=== PATIENT | female | born 1960 | race Caucasian/White ===

== ENCOUNTER 2021-02-11 18:39 | Inpatient (IN) | payer MEDICARE, SELFPAY ==
[2021-02-11 19:01] VITALS: BP 156/100; PULSE 89; RESP 18; TEMP 36.9; O2SAT 96
--- NOTE | 2021-02-11 19:10 | ECG_ITS ---
Test Reason : GENERAL MEDICAL Blood Pressure : / mmHG Vent. Rate : 099 BPM Atrial Rate : 099 BPM P-R Int : 134 ms QRS Dur : 072 ms QT Int : 336 ms P-R-T Axes : 034 003 027 degrees QTc Int : 431 ms Normal sinus rhythm Possible Left atrial enlargement Borderline ECG No previous ECGs available Referred By: Generic ED Physician Electronically Signed By:AREN BEARDEN
[2021-02-11 19:36] LABS: MANUAL DIFF FLAG NO
[2021-02-11 19:38] LABS: Basophils Percent Auto 0.3 % (0-2); Eosinophils Absolute Auto 0.1 X10*3/uL (0.0-0.4); Hematocrit 43.7 % (37-47); Hemoglobin 14.8 g/dl (12.0-16.0); Imm Gran Abs Auto 0.02 X10*3/uL (0.00-0.03); Imm Gran Pct Auto 0.3 % (0.0-0.4); Lymphocytes Absolute Auto 2.1 X10*3/uL (1.2-4.9); Lymphocytes Percent Auto 32.4 % (20-40); Mean Corpuscular HGB Conc 33.9 g/dl (31.0-35.0); Mean Corpuscular Hemoglobin 33.9 pg (27.0-33.0); Mean Corpuscular Volume 100.2 fL (80-98); Mean Platelet Volume 10.3 fL (9.4-12.3); Monocytes Absolute Auto 0.4 X10*3/uL (0.1-1.2); Monocytes Percent Auto 6.6 % (2-11); Neutrophils Absolute Auto 3.7 X10*3/uL (2.0-8.3); Neutrophils Percent Auto 58.4 % (45-73); Platelet Count 261 X10*3/uL (160-400); Red Blood Count 4.36 X10*6/uL (4.20-5.50); Red Cell Distribution Width 12.5 % (11.0-16.0); White Blood Count 6.4 X10*3/uL (4.8-10.8)
[2021-02-11 20:07] LABS: Alanine Aminotransferase 15 U/L (0-31); Albumin Level 4.3 g/dL (3.5-5.0); Alkaline Phosphatase 66 U/L (39-117); Anion Gap 15 (12-20); Aspartate Amino Transferase 22 U/L (5-31); Bilirubin Total 0.2 mg/dL (0.0-1.0); Blood Urea Nitrogen 10 mg/dL (9-16); Calcium 9.5 mg/dL (8.4-10.2); Carbon Dioxide 26 mmol/L (22-29); Chloride 106 mmol/L (96-108); Creatinine Clr Calc Pharmacy 71.6; Estimated Glomerular Filt Rate > 60; Glucose Random 86 mg/dL (60-115); Potassium 4.8 mmol/L (3.3-5.1); Sodium 142 mmol/L (135-145); Total Protein 7.1 g/dL (6.5-8.0)
[2021-02-11 20:14] LABS: Amphetamine Screen Urine Not Detected (Not Detect); Barbiturates, Urine Not Detected (Not Detect); Benzodiazepines Screen Urine Not Detected (Not Detect); Cannabinoid Screen Urine Not Detected (Not Detect); Cocaine Screen Urine POSITIVE (Not Detect); Fentanyl, urine Not Detected (Not Detect); Opiate Screen Urine Not Detected (Not Detect); Phencyclidine Screen Urine Not Detected (Not Detect)
--- NOTE | 2021-02-11 21:16 | ECG_ITS ---
Test Reason : SI Blood Pressure : / mmHG Vent. Rate : 064 BPM Atrial Rate : 064 BPM P-R Int : 136 ms QRS Dur : 076 ms QT Int : 404 ms P-R-T Axes : 027 -01 023 degrees QTc Int : 416 ms Normal sinus rhythm Possible Left atrial enlargement T wave abnormality, consider anterior ischemia Abnormal ECG When compared with ECG of 11-FEB-2021 19:19, Vent. rate has decreased BY 35 BPM T wave inversion now evident in Anterior leads Referred By: Karolina Malhotra Electronically Signed By:AREN BEARDEN
--- NOTE | 2021-02-11 21:29 | PHA.MEDREC ---
Pharmacy Consult ? Medication Reconciliation Pharmacy has completed the medication reconciliation.
[2021-02-11 21:34] VITALS: BP 152/99; PULSE 74; RESP 16; O2SAT 96
[2021-02-11 21:41] LABS: Acetaminophen LAB < 1 mcg/mL (<30); Lipase 20 U/L (8-78); Magnesium 1.9 mg/dL (1.6-2.6)
[2021-02-11] MEDS: Famotidine/PF 20 MG/2 ML VIAL IVPUSH (21:48)
[2021-02-11] MEDS: Magnesium Hydrox/Alum Hydrox 30 ML ORAL.SUSP PO (21:48)
[2021-02-11 21:50] LABS: Ethanol 58 mg/dL
[2021-02-11 22:19] LABS: COVID-19 Test Negative (Negative); IDNOW Serial# 9DD0AD1C
[2021-02-11 22:24] LABS: Troponin-I High Sensitivity < 3.5 ng/L (<3.5-17.0)
--- NOTE | 2021-02-11 22:24 | ED.PSYCH ---
HPI - Psych General Chief Complaint: Psychiatric Symptoms <MAILE Jean Last Filed: 02/12/21 00:30> Stated Complaint: si, drug abuse <MAILE Jean Last Filed: 02/12/21 00:30> Time Seen by Provider: 02/11/21 21:01 <MAILE Jean Last Filed: 02/12/21 00:30> Source: patient <MAILE Jean Last Filed: 02/12/21 00:30> Mode of arrival: ambulatory <MAILE Jean Last Filed: 02/12/21 00:30> History of Present Illness HPI Narrative: 60-year-old female with a past medical history of bipolar, depression, ETOH abuse, substance abuse, presenting to the ED complaining of suicidal ideations x a long time with suicide attempt today. Reports drinking pint of alcohol, using crack cocaine, taking a couple prescribed craving medications, today. Also reports taking about 4 unknown sleeping pills a few days ago in suicide attempt. Denies other illicit drugs. Reports medication noncompliance. Reports CP/SOB and nausea/diarrhea Denies vomiting, fever, chills, cough <MAILE Jean Last Filed: 02/12/21 00:30> Related Data Home Medications: Home Medications Medication Instructions Recorded Confirmed No Known Home Meds 02/11/21 02/11/21 <MAILE Jean Last Filed: 02/12/21 00:30> Allergies/Adverse Reactions: Allergies Allergy/AdvReac Type Severity Reaction Status Date / Time No Known Allergies Allergy Verified 02/11/21 19:01 <MAILE Jean Last Filed: 02/12/21 00:30> Review of Systems Review of Systems: Constitutional: No Fever, No Chills, No Fatigue, No Malaise ENT/Mouth: No Ear Pain, No sore throat Eyes: No Eye Pain, No Swelling, No Redness Cardiovascular: + Chest Pain, + SOB, No Palpitations Respiratory: No Cough, No Dyspnea Gastrointestinal: + Nausea, No Vomiting, + Diarrhea, No Constipation Genitourinary: No Dysuria, No Urinary Frequency Musculoskeletal: No joint pain Skin: No Skin Lesions, No rash Neuro: No Weakness, No Headache Psych: No Anxiety/Panic, + Depression, +SI, No HI, + Social Issues <MAILE Jean - Last Filed: 02/12/21 00:30> Yes all other systems are reviewed and are negative <MAILE Jean - Last Filed: 02/12/21 00:30> [facility] Past Medical History Attestation statement: The following information was validated with the patient. <MAILE Jean - Last Filed: 02/12/21 00:30> Medical History: Medical History (Updated 02/12/21 @ 00:30 by MAILE Jean) Bipolar 1 disorder Depression ETOH abuse Substance abuse <MAILE Jean - Last Filed: 02/12/21 00:30> Social History Social History: Social History Advance Directives: No Guardian: No <MAILE Jean - Last Filed: 02/12/21 00:30> Physical Exam Vital Signs: Vital Signs: Last Vital Signs Temp 97.7 F 02/12/21 06:49 Pulse 70 02/12/21 06:49 Resp 02/12/21 06:49 BP 147/93 H 02/12/21 06:49 Pulse Ox 98 02/12/21 06:49 Body Mass Index 20.0 <MAILE Jean - Last Filed: 02/12/21 00:30> Vital Signs: Last Vital Signs Temp 97.7 F 02/12/21 06:49 Pulse 70 02/12/21 06:49 Resp 18 02/12/21 06:49 BP 147/93 H 02/12/21 06:49 Pulse Ox 98 02/12/21 06:49 Body Mass Index 20.0 <MAILE Fields - Last Filed: 02/12/21 01:26> Vital Signs: Last Vital Signs Temp 97.7 F 02/12/21 06:49 Pulse 70 02/12/21 06:49 Resp 02/12/21 06:49 BP 147/93 H 02/12/21 06:49 Pulse Ox 98 02/12/21 06:49 Body Mass Index 20.0 <MAILE Chávez - Last Filed: 02/12/21 08:27> Const: General: cooperative, no acute distress, well developed, alert and awake <MAILE Jean - Last Filed: 02/12/21 00:30> Limitations: no limitations <Karolina Malhotra [facility] Last Filed: 02/12/21 00:30> HENMT: Head: Yes normal to inspection <Karolina Malhotra [facility] Last Filed: 02/12/21 00:30> Ears: hearing grossly normal bilaterally <Karolina Malhotra [place] - Last Filed: 02/12/21 00:30> General nose exam: Normal external nose present <Karolina Malhotra [facility] Last Filed: 02/12/21 00:30> Face and sinus: Yes normal facial exam <Karolina Malhotra [place] - Last Filed: 02/12/21 00:30> Eyes: General: appearance normal, both eyes and all related structures <Karolina Malhotra [place] - Last Filed: 02/12/21 00:30> Pupils: Equal, round and reactive pupils present <Karolina Malhotra [facility] Last Filed: 02/12/21 00:30> EOM: EOMs intact bilaterally <Karolina Malhotra [facility] Last Filed: 02/12/21 00:30> Neck: Neck: Yes normal visual inspection <Karolina Malhotra [facility] Last Filed: 02/12/21 00:30> Resp: Effort & Inspection: normal respiratory effort <Karolina Malhotra [facility] Last Filed: 02/12/21 00:30> Auscultation: clear to auscultation bilaterally, no rales, no rhonchi and no wheezes <Karolina Malhotra [facility] Last Filed: 02/12/21 00:30> Cardio: Rate: regular rate <Karolina Malhotra [facility] Last Filed: 02/12/21 00:30> Heart sounds: S1 normal heart sound present and S2 normal heart sound present <Karolina Malhotra [facility] Last Filed: 02/12/21 00:30> GI: Inspection: Yes normal to inspection <Karolina Malhotra [facility] Last Filed: 02/12/21 00:30> Palpation (GI): Soft to palpation, nontender, no guarding and not rigid <Karolina Malhotra [facility] Last Filed: 02/12/21 00:30> Skin: Rashes: no rashes <Karolina Malhotra [place] - Last Filed: 02/12/21 00:30> Wounds: no wounds <MAILE Jean Last Filed: 02/12/21 00:30> Neuro: Cranial nerves: Yes Equal, round and reactive pupils present <MAILE Jean Last Filed: 02/12/21 00:30> Gait exam (Neuro): Normal gait present <MAILE Jean Last Filed: 02/12/21 00:30> Extrem: General: Yes normal to inspection <MAILE Jean Last Filed: 02/12/21 00:30> Psych: Affect: Sad affect present and Blunted affect present <MAILE Jean Last Filed: 02/12/21 00:30> Thought content: Suicidality present, Depressive thoughts present and Depersonalization present <AMILE Jean Last Filed: 02/12/21 00:30> Insight: Fair insight present (Psych) <MAILE Jean Last Filed: 02/12/21 00:30> Judgement: Poor judgement present (Psych) <MAILE Jean Last Filed: 02/12/21 00:30> Course Course Course Narrative: Section 12 signed and in patient's chart -labs unremarkable, including troponin -tox screen positive for cocaine, ethanol 58 -0020--patient was evaluated by care team and is now an inpatient bed search -0100--ED care transferred to Dr. Alberts pending bed search. Patient placed in Physician observation <MAILE Jean Last Filed: 02/12/21 00:30> MDM - Psych MDM Narrative Medical decision making narrative: 60-year-old female with a PMHx of bipolar, depression, ETOH abuse, substance abuse, presenting to the ED complaining of suicidal ideations x a long time with suicide attempt today. Reports drinking pint of alcohol, using crack cocaine, taking a couple prescribed craving medications, today. Also reports taking about 4 unknown sleeping pills a few days ago in suicide attempt. On exam initially hypertensive, NAD, physical exam as above. Concern for intentional OD vs substance abuse vs anxiety. Rule out ACS. Low concern for acute OD on sleeping pills as patient denies taking any sleeping medication today & reports taking a few days ago Plan: EKG, labs, BUCK/tox screen, Section 12, Crisis consult <MAILE Jean - Last Filed: 02/12/21 00:30> Medical Records Attestation: I reviewed the patient's medical records. <MAILE Jean - Last Filed: 02/12/21 00:30> Lab Data Attestation: I reviewed the patient's lab results. <MAILE Jean - Last Filed: 02/12/21 00:30> Result diagrams: : 02/11/21 19:31 02/11/21 19:31 <MAILE Jean - Last Filed: 02/12/21 00:30> Labs: Lab Results 02/11/21 02/11/21 02/11/21 Range/Units 19:31 19:31 19:31 WBC 6.4 (4.8-10.8) X10*3/uL RBC 4.36 (4.20-5.50) X10*6/uL Hgb 14.8 (12.0-16.0) g/dl Hct 43.7 (37-47) % MCV 100.2 H (80-98) fL MCH 33.9 H (27.0-33.0) pg MCHC 33.9 (31.0-35.0) g/dl RDW 12.5 (11.0-16.0) % Plt Count 261 (160-400) X10*3/uL MPV 10.3 (9.4-12.3) fL Immature Gran % (Auto) 0.3 (0.0-0.4) % Neut % (Auto) 58.4 (45-73) % Lymph % (Auto) 32.4 (20-40) % Person % (Auto) 6.6 (2-11) % Eos % (Auto) 2.0 (0-4) % Baso % (Auto) 0.3 (0-2) % Lymph # (Auto) 2.1 (1.2-4.9) X10*3/uL Person # (Auto) 0.4 (0.1-1.2) X10*3/uL Eos # (Auto) 0.1 (0.0-0.4) X10*3/uL Baso # (Auto) 0.0 (0.0-0.2) X10*3/uL Abs Immat Gran (auto) 0.02 (0.00-0.03) X10*3/uL Absolute Neuts (auto) 3.7 (2.0-8.3) X10*3/uL Absolute Nucleated RBC 0.000 (0.0-0.012) X10*3/uL Nucleated RBC % (auto) 0.0 (0.0-0.2) /100WBC Sodium 142 (135-145) mmol/L Potassium 4.8 (3.3-5.1) mmol/L Chloride 106 (96-108) mmol/L Carbon Dioxide 26 (22-29) mmol/L Anion Gap 15 (12-20) BUN 10 (9-16) mg/dL Creatinine 0.70 (0.5-1.4) mg/dL Estim Creat Clear Calc 71.6 Estimated GFR > 60 Random Glucose 86 (60-115) mg/dL Calcium 9.5 (8.4-10.2) mg/dL Magnesium 1.9 (1.6-2.6) mg/dL Total Bilirubin 0.2 (0.0-1.0) mg/dL AST 22 (5-31) U/L ALT 15 (0-31) U/L Alkaline Phosphatase 66 (39-117) U/L Troponin I High Sens (<3.5-17.0) ng/L Total Protein 7.1 (6.5-8.0) g/dL Albumin 4.3 (3.5-5.0) g/dL Lipase 20 (8-78) U/L Urine Color Urine Appearance Urine pH (5.0-8.0) Ur Specific [place] (1.005-1.025) Urine Protein (NEG-TRACE) MG/DL Urine Glucose (UA) (NEG) MG/DL Urine Ketones (NEG) MG/DL Urine Blood (NEG) Urine Nitrite (NEG) Ur Leukocyte Esterase (NEG) Urine RBC (0) /HPF Urine WBC (0-4) /HPF Ur Squamous Epith Cells /LPF Urine Bacteria /LPF Urine Mucus /LPF Salicylates < 5.0 L (15-30) mg/dL Urine Opiates Screen Not Detected (Not Detect) Urine Fentanyl Screen Not Detected (Not Detect) Acetaminophen < 1 (<30) mcg/mL Ur Barbiturates Screen Not Detected (Not Detect) Ur Phencyclidine Scrn Not Detected (Not Detect) Ur Amphetamines Screen Not Detected (Not Detect) U Benzodiazepines Scrn Not Detected (Not Detect) Urine Cocaine Screen POSITIVE H (Not Detect) U Marijuana (THC) Screen Not Detected (Not Detect) Ethyl Alcohol mg/dL COVID-19 (JACKIE) (Negative) COVID-19 Clin Com 02/11/21 02/11/21 02/11/21 Range/Units 19:31 19:31 21:43 WBC (4.8-10.8) X10*3/uL RBC (4.20-5.50) X10*6/uL Hgb (12.0-16.0) g/dl Hct (37-47) % MCV (80-98) fL MCH (27.0-33.0) pg MCHC (31.0-35.0) g/dl RDW (11.0-16.0) % Plt Count (160-400) X10*3/uL MPV (9.4-12.3) fL Immature Gran % (Auto) (0.0-0.4) % Neut % (Auto) (45-73) % Lymph % (Auto) (20-40) % Person % (Auto) (2-11) % Eos % (Auto) (0-4) % Baso % (Auto) (0-2) % Lymph # (Auto) (1.2-4.9) X10*3/uL Person # (Auto) (0.1-1.2) X10*3/uL Eos # (Auto) (0.0-0.4) X10*3/uL Baso # (Auto) (0.0-0.2) X10*3/uL Abs Immat Gran (auto) (0.00-0.03) X10*3/uL Absolute Neuts (auto) (2.0-8.3) X10*3/uL Absolute Nucleated RBC (0.0-0.012) X10*3/uL Nucleated RBC % (auto) (0.0-0.2) /100WBC Sodium (135-145) mmol/L Potassium (3.3-5.1) mmol/L Chloride (96-108) mmol/L Carbon Dioxide (22-29) mmol/L Anion Gap (12-20) BUN (9-16) mg/dL Creatinine (0.5-1.4) mg/dL Estim Creat Clear Calc Estimated GFR Random Glucose (60-115) mg/dL Calcium (8.4-10.2) mg/dL Magnesium (1.6-2.6) mg/dL Total Bilirubin (0.0-1.0) mg/dL AST (5-31) U/L ALT (0-31) U/L Alkaline Phosphatase (39-117) U/L Troponin I High Sens < 3.5 (<3.5-17.0) ng/L Total Protein (6.5-8.0) g/dL Albumin (3.5-5.0) g/dL Lipase (8-78) U/L Urine Color YELLOW Urine Appearance CLEAR Urine pH 6.0 (5.0-8.0) Ur Specific [place] 1.025 (1.005-1.025) Urine Protein NEG (NEG-TRACE) MG/DL Urine Glucose (UA) NEG (NEG) MG/DL Urine Ketones NEG (NEG) MG/DL Urine Blood TRACE (NEG) Urine Nitrite NEG (NEG) Ur Leukocyte Esterase NEG (NEG) Urine RBC 1-4 (0) /HPF Urine WBC 1-4 (0-4) /HPF Ur Squamous Epith Cells 1+ /LPF Urine Bacteria 1+ /LPF Urine Mucus 1+ /LPF Salicylates (15-30) mg/dL Urine Opiates Screen (Not Detect) Urine Fentanyl Screen (Not Detect) Acetaminophen (<30) mcg/mL Ur Barbiturates Screen (Not Detect) Ur Phencyclidine Scrn (Not Detect) Ur Amphetamines Screen (Not Detect) U Benzodiazepines Scrn (Not Detect) Urine Cocaine Screen (Not Detect) U Marijuana (THC) Screen (Not Detect) Ethyl Alcohol 58 mg/dL COVID-19 (JACKIE) (Negative) COVID-19 Clin Com 02/11/21 Range/Units 21:43 WBC (4.8-10.8) X10*3/uL RBC (4.20-5.50) X10*6/uL Hgb (12.0-16.0) g/dl Hct (37-47) % MCV (80-98) fL MCH (27.0-33.0) pg MCHC (31.0-35.0) g/dl RDW (11.0-16.0) % Plt Count (160-400) X10*3/uL MPV (9.4-12.3) fL Immature Gran % (Auto) (0.0-0.4) % Neut % (Auto) (45-73) % Lymph % (Auto) (20-40) % Person % (Auto) (2-11) % Eos % (Auto) (0-4) % Baso % (Auto) (0-2) % Lymph # (Auto) (1.2-4.9) X10*3/uL Person # (Auto) (0.1-1.2) X10*3/uL Eos # (Auto) (0.0-0.4) X10*3/uL Baso # (Auto) (0.0-0.2) X10*3/uL Abs Immat Gran (auto) (0.00-0.03) X10*3/uL Absolute Neuts (auto) (2.0-8.3) X10*3/uL Absolute Nucleated RBC (0.0-0.012) X10*3/uL Nucleated RBC % (auto) (0.0-0.2) /100WBC Sodium (135-145) mmol/L Potassium (3.3-5.1) mmol/L Chloride (96-108) mmol/L Carbon Dioxide (22-29) mmol/L Anion Gap (12-20) BUN (9-16) mg/dL Creatinine (0.5-1.4) mg/dL Estim Creat Clear Calc Estimated GFR Random Glucose (60-115) mg/dL Calcium (8.4-10.2) mg/dL Magnesium (1.6-2.6) mg/dL Total Bilirubin (0.0-1.0) mg/dL AST (5-31) U/L ALT (0-31) U/L Alkaline Phosphatase (39-117) U/L Troponin I High Sens (<3.5-17.0) ng/L Total Protein (6.5-8.0) g/dL Albumin (3.5-5.0) g/dL Lipase (8-78) U/L Urine Color Urine Appearance Urine pH (5.0-8.0) Ur Specific [place] (1.005-1.025) Urine Protein (NEG-TRACE) MG/DL Urine Glucose (UA) (NEG) MG/DL Urine Ketones (NEG) MG/DL Urine Blood (NEG) Urine Nitrite (NEG) Ur Leukocyte Esterase (NEG) Urine RBC (0) /HPF Urine WBC (0-4) /HPF Ur Squamous Epith Cells /LPF Urine Bacteria /LPF Urine Mucus /LPF Salicylates (15-30) mg/dL Urine Opiates Screen (Not Detect) Urine Fentanyl Screen (Not Detect) Acetaminophen (<30) mcg/mL Ur Barbiturates Screen (Not Detect) Ur Phencyclidine Scrn (Not Detect) Ur Amphetamines Screen (Not Detect) U Benzodiazepines Scrn (Not Detect) Urine Cocaine Screen (Not Detect) U Marijuana (THC) Screen (Not Detect) Ethyl Alcohol mg/dL COVID-19 (JACKIE) Negative (Negative) COVID-19 Clin Com See Note <MAILE Jaen - Last Filed: 02/12/21 00:30> Lab Results 02/11/21 02/11/21 02/11/21 Range/Units 19:31 19:31 19:31 WBC 6.4 (4.8-10.8) X10*3/uL RBC 4.36 (4.20-5.50) X10*6/uL Hgb 14.8 (12.0-16.0) g/dl Hct 43.7 (37-47) % MCV 100.2 H (80-98) fL MCH 33.9 H (27.0-33.0) pg MCHC 33.9 (31.0-35.0) g/dl RDW 12.5 (11.0-16.0) % Plt Count 261 (160-400) X10*3/uL MPV 10.3 (9.4-12.3) fL Immature Gran % (Auto) 0.3 (0.0-0.4) % Neut % (Auto) 58.4 (45-73) % Lymph % (Auto) 32.4 (20-40) % Person % (Auto) 6.6 (2-11) % Eos % (Auto) 2.0 (0-4) % Baso % (Auto) 0.3 (0-2) % Lymph # (Auto) 2.1 (1.2-4.9) X10*3/uL Person # (Auto) 0.4 (0.1-1.2) X10*3/uL Eos # (Auto) 0.1 (0.0-0.4) X10*3/uL Baso # (Auto) 0.0 (0.0-0.2) X10*3/uL Abs Immat Gran (auto) 0.02 (0.00-0.03) X10*3/uL Absolute Neuts (auto) 3.7 (2.0-8.3) X10*3/uL Absolute Nucleated RBC 0.000 (0.0-0.012) X10*3/uL Nucleated RBC % (auto) 0.0 (0.0-0.2) /100WBC Sodium 142 (135-145) mmol/L Potassium 4.8 (3.3-5.1) mmol/L Chloride 106 (96-108) mmol/L Carbon Dioxide 26 (22-29) mmol/L Anion Gap 15 (12-20) BUN 10 (9-16) mg/dL Creatinine 0.70 (0.5-1.4) mg/dL Estim Creat Clear Calc 71.6 Estimated GFR > 60 Random Glucose 86 (60-115) mg/dL Calcium 9.5 (8.4-10.2) mg/dL Magnesium 1.9 (1.6-2.6) mg/dL Total Bilirubin 0.2 (0.0-1.0) mg/dL AST 22 (5-31) U/L ALT 15 (0-31) U/L Alkaline Phosphatase 66 (39-117) U/L Troponin I High Sens (<3.5-17.0) ng/L Total Protein 7.1 (6.5-8.0) g/dL Albumin 4.3 (3.5-5.0) g/dL Lipase 20 (8-78) U/L Urine Color Urine Appearance Urine pH (5.0-8.0) Ur Specific [place] (1.005-1.025) Urine Protein (NEG-TRACE) MG/DL Urine Glucose (UA) (NEG) MG/DL Urine Ketones (NEG) MG/DL Urine Blood (NEG) Urine Nitrite (NEG) Ur Leukocyte Esterase (NEG) Urine RBC (0) /HPF Urine WBC (0-4) /HPF Ur Squamous Epith Cells /LPF Urine Bacteria /LPF Urine Mucus /LPF Salicylates < 5.0 L (15-30) mg/dL Urine Opiates Screen Not Detected (Not Detect) Urine Fentanyl Screen Not Detected (Not Detect) Acetaminophen < 1 (<30) mcg/mL Ur Barbiturates Screen Not Detected (Not Detect) Ur Phencyclidine Scrn Not Detected (Not Detect) Ur Amphetamines Screen Not Detected (Not Detect) U Benzodiazepines Scrn Not Detected (Not Detect) Urine Cocaine Screen POSITIVE H (Not Detect) U Marijuana (THC) Screen Not Detected (Not Detect) Ethyl Alcohol mg/dL COVID-19 (JACKIE) (Negative) COVID-19 Clin Com 02/11/21 02/11/21 02/11/21 Range/Units 19:31 19:31 21:43 WBC (4.8-10.8) X10*3/uL RBC (4.20-5.50) X10*6/uL Hgb (12.0-16.0) g/dl Hct (37-47) % MCV (80-98) fL MCH (27.0-33.0) pg MCHC (31.0-35.0) g/dl RDW (11.0-16.0) % Plt Count (160-400) X10*3/uL MPV (9.4-12.3) fL Immature Gran % (Auto) (0.0-0.4) % Neut % (Auto) (45-73) % Lymph % (Auto) (20-40) % Person % (Auto) (2-11) % Eos % (Auto) (0-4) % Baso % (Auto) (0-2) % Lymph # (Auto) (1.2-4.9) X10*3/uL Person # (Auto) (0.1-1.2) X10*3/uL Eos # (Auto) (0.0-0.4) X10*3/uL Baso # (Auto) (0.0-0.2) X10*3/uL Abs Immat Gran (auto) (0.00-0.03) X10*3/uL Absolute Neuts (auto) (2.0-8.3) X10*3/uL Absolute Nucleated RBC (0.0-0.012) X10*3/uL Nucleated RBC % (auto) (0.0-0.2) /100WBC Sodium (135-145) mmol/L Potassium (3.3-5.1) mmol/L Chloride (96-108) mmol/L Carbon Dioxide (22-29) mmol/L Anion Gap (12-20) BUN (9-16) mg/dL Creatinine (0.5-1.4) mg/dL Estim Creat Clear Calc Estimated GFR Random Glucose (60-115) mg/dL Calcium (8.4-10.2) mg/dL Magnesium (1.6-2.6) mg/dL Total Bilirubin (0.0-1.0) mg/dL AST (5-31) U/L ALT (0-31) U/L Alkaline Phosphatase (39-117) U/L Troponin I High Sens < 3.5 (<3.5-17.0) ng/L Total Protein (6.5-8.0) g/dL Albumin (3.5-5.0) g/dL Lipase (8-78) U/L Urine Color YELLOW Urine Appearance CLEAR Urine pH 6.0 (5.0-8.0) Ur Specific [place] 1.025 (1.005-1.025) Urine Protein NEG (NEG-TRACE) MG/DL Urine Glucose (UA) NEG (NEG) MG/DL Urine Ketones NEG (NEG) MG/DL Urine Blood TRACE (NEG) Urine Nitrite NEG (NEG) Ur Leukocyte Esterase NEG (NEG) Urine RBC 1-4 (0) /HPF Urine WBC 1-4 (0-4) /HPF Ur Squamous Epith Cells 1+ /LPF Urine Bacteria 1+ /LPF Urine Mucus 1+ /LPF Salicylates (15-30) mg/dL Urine Opiates Screen (Not Detect) Urine Fentanyl Screen (Not Detect) Acetaminophen (<30) mcg/mL Ur Barbiturates Screen (Not Detect) Ur Phencyclidine Scrn (Not Detect) Ur Amphetamines Screen (Not Detect) U Benzodiazepines Scrn (Not Detect) Urine Cocaine Screen (Not Detect) U Marijuana (THC) Screen (Not Detect) Ethyl Alcohol 58 mg/dL COVID-19 (JACKIE) (Negative) COVID-19 Clin Com 02/11/21 Range/Units 21:43 WBC (4.8-10.8) X10*3/uL RBC (4.20-5.50) X10*6/uL Hgb (12.0-16.0) g/dl Hct (37-47) % MCV (80-98) fL MCH (27.0-33.0) pg MCHC (31.0-35.0) g/dl RDW (11.0-16.0) % Plt Count (160-400) X10*3/uL MPV (9.4-12.3) fL Immature Gran % (Auto) (0.0-0.4) % Neut % (Auto) (45-73) % Lymph % (Auto) (20-40) % Person % (Auto) (2-11) % Eos % (Auto) (0-4) % Baso % (Auto) (0-2) % Lymph # (Auto) (1.2-4.9) X10*3/uL Person # (Auto) (0.1-1.2) X10*3/uL Eos # (Auto) (0.0-0.4) X10*3/uL Baso # (Auto) (0.0-0.2) X10*3/uL Abs Immat Gran (auto) (0.00-0.03) X10*3/uL Absolute Neuts (auto) (2.0-8.3) X10*3/uL Absolute Nucleated RBC (0.0-0.012) X10*3/uL Nucleated RBC % (auto) (0.0-0.2) /100WBC Sodium (135-145) mmol/L Potassium (3.3-5.1) mmol/L Chloride (96-108) mmol/L Carbon Dioxide (22-29) mmol/L Anion Gap (12-20) BUN (9-16) mg/dL Creatinine (0.5-1.4) mg/dL Estim Creat Clear Calc Estimated GFR Random Glucose (60-115) mg/dL Calcium (8.4-10.2) mg/dL Magnesium (1.6-2.6) mg/dL Total Bilirubin (0.0-1.0) mg/dL AST (5-31) U/L ALT (0-31) U/L Alkaline Phosphatase (39-117) U/L Troponin I High Sens (<3.5-17.0) ng/L Total Protein (6.5-8.0) g/dL Albumin (3.5-5.0) g/dL Lipase (8-78) U/L Urine Color Urine Appearance Urine pH (5.0-8.0) Ur Specific [place] (1.005-1.025) Urine Protein (NEG-TRACE) MG/DL Urine Glucose (UA) (NEG) MG/DL Urine Ketones (NEG) MG/DL Urine Blood (NEG) Urine Nitrite (NEG) Ur Leukocyte Esterase (NEG) Urine RBC (0) /HPF Urine WBC (0-4) /HPF Ur Squamous Epith Cells /LPF Urine Bacteria /LPF Urine Mucus /LPF Salicylates (15-30) mg/dL Urine Opiates Screen (Not Detect) Urine Fentanyl Screen (Not Detect) Acetaminophen (<30) mcg/mL Ur Barbiturates Screen (Not Detect) Ur Phencyclidine Scrn (Not Detect) Ur Amphetamines Screen (Not Detect) U Benzodiazepines Scrn (Not Detect) Urine Cocaine Screen (Not Detect) U Marijuana (THC) Screen (Not Detect) Ethyl Alcohol mg/dL COVID-19 (JACKIE) Negative (Negative) COVID-19 Clin Com See Note <MAILE Fields - Last Filed: 02/12/21 01:26> Lab Results 02/11/21 02/11/21 02/11/21 Range/Units 19:31 19:31 19:31 WBC 6.4 (4.8-10.8) X10*3/uL RBC 4.36 (4.20-5.50) X10*6/uL Hgb 14.8 (12.0-16.0) g/dl Hct 43.7 (37-47) % MCV 100.2 H (80-98) fL MCH 33.9 H (27.0-33.0) pg MCHC 33.9 (31.0-35.0) g/dl RDW 12.5 (11.0-16.0) % Plt Count 261 (160-400) X10*3/uL MPV 10.3 (9.4-12.3) fL Immature Gran % (Auto) 0.3 (0.0-0.4) % Neut % (Auto) 58.4 (45-73) % Lymph % (Auto) 32.4 (20-40) % Person % (Auto) 6.6 (2-11) % Eos % (Auto) 2.0 (0-4) % Baso % (Auto) 0.3 (0-2) % Lymph # (Auto) 2.1 (1.2-4.9) X10*3/uL Person # (Auto) 0.4 (0.1-1.2) X10*3/uL Eos # (Auto) 0.1 (0.0-0.4) X10*3/uL Baso # (Auto) 0.0 (0.0-0.2) X10*3/uL Abs Immat Gran (auto) 0.02 (0.00-0.03) X10*3/uL Absolute Neuts (auto) 3.7 (2.0-8.3) X10*3/uL Absolute Nucleated RBC 0.000 (0.0-0.012) X10*3/uL Nucleated RBC % (auto) 0.0 (0.0-0.2) /100WBC Sodium 142 (135-145) mmol/L Potassium 4.8 (3.3-5.1) mmol/L Chloride 106 (96-108) mmol/L Carbon Dioxide 26 (22-29) mmol/L Anion Gap 15 (12-20) BUN 10 (9-16) mg/dL Creatinine 0.70 (0.5-1.4) mg/dL Estim Creat Clear Calc 71.6 Estimated GFR > 60 Random Glucose 86 (60-115) mg/dL Calcium 9.5 (8.4-10.2) mg/dL Magnesium 1.9 (1.6-2.6) mg/dL Total Bilirubin 0.2 (0.0-1.0) mg/dL AST 22 (5-31) U/L ALT 15 (0-31) U/L Alkaline Phosphatase 66 (39-117) U/L Troponin I High Sens (<3.5-17.0) ng/L Total Protein 7.1 (6.5-8.0) g/dL Albumin 4.3 (3.5-5.0) g/dL Lipase 20 (8-78) U/L Urine Color Urine Appearance Urine pH (5.0-8.0) Ur Specific [place] (1.005-1.025) Urine Protein (NEG-TRACE) MG/DL Urine Glucose (UA) (NEG) MG/DL Urine Ketones (NEG) MG/DL Urine Blood (NEG) Urine Nitrite (NEG) Ur Leukocyte Esterase (NEG) Urine RBC (0) /HPF Urine WBC (0-4) /HPF Ur Squamous Epith Cells /LPF Urine Bacteria /LPF Urine Mucus /LPF Salicylates < 5.0 L (15-30) mg/dL Urine Opiates Screen Not Detected (Not Detect) Urine Fentanyl Screen Not Detected (Not Detect) Acetaminophen < 1 (<30) mcg/mL Ur Barbiturates Screen Not Detected (Not Detect) Ur Phencyclidine Scrn Not Detected (Not Detect) Ur Amphetamines Screen Not Detected (Not Detect) U Benzodiazepines Scrn Not Detected (Not Detect) Urine Cocaine Screen POSITIVE H (Not Detect) U Marijuana (THC) Screen Not Detected (Not Detect) Ethyl Alcohol mg/dL COVID-19 (JACKIE) (Negative) COVID-19 Clin Com 02/11/21 02/11/21 02/11/21 Range/Units 19:31 19:31 21:43 WBC (4.8-10.8) X10*3/uL RBC (4.20-5.50) X10*6/uL Hgb (12.0-16.0) g/dl Hct (37-47) % MCV (80-98) fL MCH (27.0-33.0) pg MCHC (31.0-35.0) g/dl RDW (11.0-16.0) % Plt Count (160-400) X10*3/uL MPV (9.4-12.3) fL Immature Gran % (Auto) (0.0-0.4) % Neut % (Auto) (45-73) % Lymph % (Auto) (20-40) % Person % (Auto) (2-11) % Eos % (Auto) (0-4) % Baso % (Auto) (0-2) % Lymph # (Auto) (1.2-4.9) X10*3/uL Person # (Auto) (0.1-1.2) X10*3/uL Eos # (Auto) (0.0-0.4) X10*3/uL Baso # (Auto) (0.0-0.2) X10*3/uL Abs Immat Gran (auto) (0.00-0.03) X10*3/uL Absolute Neuts (auto) (2.0-8.3) X10*3/uL Absolute Nucleated RBC (0.0-0.012) X10*3/uL Nucleated RBC % (auto) (0.0-0.2) /100WBC Sodium (135-145) mmol/L Potassium (3.3-5.1) mmol/L Chloride (96-108) mmol/L Carbon Dioxide (22-29) mmol/L Anion Gap (12-20) BUN (9-16) mg/dL Creatinine (0.5-1.4) mg/dL Estim Creat Clear Calc Estimated GFR Random Glucose (60-115) mg/dL Calcium (8.4-10.2) mg/dL Magnesium (1.6-2.6) mg/dL Total Bilirubin (0.0-1.0) mg/dL AST (5-31) U/L ALT (0-31) U/L Alkaline Phosphatase (39-117) U/L Troponin I High Sens < 3.5 (<3.5-17.0) ng/L Total Protein (6.5-8.0) g/dL Albumin (3.5-5.0) g/dL Lipase (8-78) U/L Urine Color YELLOW Urine Appearance CLEAR Urine pH 6.0 (5.0-8.0) Ur Specific [place] 1.025 (1.005-1.025) Urine Protein NEG (NEG-TRACE) MG/DL Urine Glucose (UA) NEG (NEG) MG/DL Urine Ketones NEG (NEG) MG/DL Urine Blood TRACE (NEG) Urine Nitrite NEG (NEG) Ur Leukocyte Esterase NEG (NEG) Urine RBC 1-4 (0) /HPF Urine WBC 1-4 (0-4) /HPF Ur Squamous Epith Cells 1+ /LPF Urine Bacteria 1+ /LPF Urine Mucus 1+ /LPF Salicylates (15-30) mg/dL Urine Opiates Screen (Not Detect) Urine Fentanyl Screen (Not Detect) Acetaminophen (<30) mcg/mL Ur Barbiturates Screen (Not Detect) Ur Phencyclidine Scrn (Not Detect) Ur Amphetamines Screen (Not Detect) U Benzodiazepines Scrn (Not Detect) Urine Cocaine Screen (Not Detect) U Marijuana (THC) Screen (Not Detect) Ethyl Alcohol 58 mg/dL COVID-19 (JACKIE) (Negative) COVID-19 Clin Com 02/11/21 Range/Units 21:43 WBC (4.8-10.8) X10*3/uL RBC (4.20-5.50) X10*6/uL Hgb (12.0-16.0) g/dl Hct (37-47) % MCV (80-98) fL MCH (27.0-33.0) pg MCHC (31.0-35.0) g/dl RDW (11.0-16.0) % Plt Count (160-400) X10*3/uL MPV (9.4-12.3) fL Immature Gran % (Auto) (0.0-0.4) % Neut % (Auto) (45-73) % Lymph % (Auto) (20-40) % Person % (Auto) (2-11) % Eos % (Auto) (0-4) % Baso % (Auto) (0-2) % Lymph # (Auto) (1.2-4.9) X10*3/uL Person # (Auto) (0.1-1.2) X10*3/uL Eos # (Auto) (0.0-0.4) X10*3/uL Baso # (Auto) (0.0-0.2) X10*3/uL Abs Immat Gran (auto) (0.00-0.03) X10*3/uL Absolute Neuts (auto) (2.0-8.3) X10*3/uL Absolute Nucleated RBC (0.0-0.012) X10*3/uL Nucleated RBC % (auto) (0.0-0.2) /100WBC Sodium (135-145) mmol/L Potassium (3.3-5.1) mmol/L Chloride (96-108) mmol/L Carbon Dioxide (22-29) mmol/L Anion Gap (12-20) BUN (9-16) mg/dL Creatinine (0.5-1.4) mg/dL Estim Creat Clear Calc Estimated GFR Random Glucose (60-115) mg/dL Calcium (8.4-10.2) mg/dL Magnesium (1.6-2.6) mg/dL Total Bilirubin (0.0-1.0) mg/dL AST (5-31) U/L ALT (0-31) U/L Alkaline Phosphatase (39-117) U/L Troponin I High Sens (<3.5-17.0) ng/L Total Protein (6.5-8.0) g/dL Albumin (3.5-5.0) g/dL Lipase (8-78) U/L Urine Color Urine Appearance Urine pH (5.0-8.0) Ur Specific [place] (1.005-1.025) Urine Protein (NEG-TRACE) MG/DL Urine Glucose (UA) (NEG) MG/DL Urine Ketones (NEG) MG/DL Urine Blood (NEG) Urine Nitrite (NEG) Ur Leukocyte Esterase (NEG) Urine RBC (0) /HPF Urine WBC (0-4) /HPF Ur Squamous Epith Cells /LPF Urine Bacteria /LPF Urine Mucus /LPF Salicylates (15-30) mg/dL Urine Opiates Screen (Not Detect) Urine Fentanyl Screen (Not Detect) Acetaminophen (<30) mcg/mL Ur Barbiturates Screen (Not Detect) Ur Phencyclidine Scrn (Not Detect) Ur Amphetamines Screen (Not Detect) U Benzodiazepines Scrn (Not Detect) Urine Cocaine Screen (Not Detect) U Marijuana (THC) Screen (Not Detect) Ethyl Alcohol mg/dL COVID-19 (JACKIE) Negative (Negative) COVID-19 Clin Com See Note <MAILE Chávez - Last Filed: 02/12/21 08:27> ECG Data Attestation: I personally reviewed and interpreted this ECG as follows: <MAILE Jean - Last Filed: 02/12/21 00:30> ECG interpretation date: 02/11/21 <MAILE Jean - Last Filed: 02/12/21 00:30> ECG interpretation time: 22:48 <MAILE Jean - Last Filed: 02/12/21 00:30> Interpretation: EKG normal sinus rhythm with a rate of 64. QTC 416, nonischemic/no STEMI <MAILE Jean - Last Filed: 02/12/21 00:30> Discharge Plan Discharge Clinical Impression: Suicidal ideation, Suicide attempt, Substance abuse <MAILE Jean - Last Filed: 02/12/21 00:30> Prescriptions: No Action No Known Home Meds RF: 0 <MAILE Jean - Last Filed: 02/12/21 00:30>
[2021-02-11 23:30] LABS: Salicylate < 5.0 mg/dL (15-30)
--- NOTE | 2021-02-12 | ECG_ITS ---
Test Reason : MED MARVIN Blood Pressure : / mmHG Vent. Rate : 057 BPM Atrial Rate : 057 BPM P-R Int : 128 ms QRS Dur : 082 ms QT Int : 426 ms P-R-T Axes : -13 -03 034 degrees QTc Int : 414 ms Sinus bradycardia Otherwise normal ECG When compared with ECG of 11-FEB-2021 22:40, No significant change was found Referred By: Generic ED Physician Electronically Signed By:AREN BEARDEN
--- NOTE | 2021-02-12 00:52 | PC.NURSE ---
Patient got transferred from main ED to the POD, patient is independent in ambulation, patient got seen by care team, disposition is section 12 inpatient bed search, behavior calm and quiet at this time, no distress observed/reported, will continue to monitor.
[2021-02-12 01:36] LABS: Appearance Urine CLEAR; Color Urine YELLOW; Glucose Urine UA NEG (NEG); Leukocyte Esterase Urine NEG (NEG); Nitrite Urine NEG (NEG); Specific Gravity - Urine 1.025 (1.005-1.025); Urine Blood TRACE (NEG); Urine Ketones NEG (NEG); Urine Protein NEG (NEG-TRACE)
[2021-02-12 01:47] LABS: Bacteria Urine 1+ /LPF; Mucus Urine 1+ /LPF; Squamous Epithelial Cell Urine 1+ /LPF
--- NOTE | 2021-02-12 02:33 | MHC.CARE ---
CARE team evaluated pt with disposition for psychiatric admission. Sect 12a in chart.
--- NOTE | 2021-02-12 06:03 | PC.NURSE ---
Patient slept through the night, no distress observed/reported, behavior appropriate, patient is not currently on medication, per care team patient is section 12 inpatient bed search, will continue to monitor.
[2021-02-12 06:49] VITALS: BP 147/93; PULSE 70; RESP 18; TEMP 36.5; O2SAT 98
--- NOTE | 2021-02-12 07:53 | PC.NURSE ---
pt sleeping at this time
[2021-02-12] MEDS: Thiamine HCL 100 MG TABLET PO (09:56)
[2021-02-12] MEDS: Acetaminophen 325 MG TABLET 975 MG PO (09:56)
[2021-02-12 11:50] VITALS: BP 124/103; PULSE 74; RESP 16; TEMP 37; O2SAT 100
[2021-02-12] MEDS: LORazepam 1 MG TABLET 2 MG PO (13:50)
[2021-02-12 16:49] VITALS: BP 123/94; PULSE 76; RESP 20; TEMP 36.8; O2SAT 100
[2021-02-12 18:10] VITALS: BMI 21.4
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
[2021-02-12] MEDS: LORazepam 1 MG TABLET PO (20:15)
[2021-02-12] MEDS: Gabapentin 300 MG CAPSULE PO (20:15)
[2021-02-13 06:00] VITALS: BP 120/79; PULSE 70; TEMP 36.7; O2SAT 98
[2021-02-13] MEDS: Gabapentin 300 MG CAPSULE PO ×3 (09:29→20:21)
[2021-02-13] MEDS: LORazepam 1 MG TABLET PO ×3 (09:29→20:21)
[2021-02-13] MEDS: Multivitamin TABLET 1 TAB PO (09:30)
[2021-02-13] MEDS: Folic Acid 1 MG TABLET PO (09:30)
[2021-02-13] MEDS: Thiamine HCL 100 MG TABLET PO (09:31)
[2021-02-13 09:39] VITALS: BP 127/84; PULSE 73
[2021-02-13 10:03] LABS: Folate 10.1 ng/mL (> or = 4.0)
[2021-02-13] MEDS: Magnesium Hydrox/Alum Hydrox 30 ML ORAL.SUSP PO (10:14)
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
[2021-02-13 16:42] VITALS: BMI 21.9
[2021-02-13 17:23] VITALS: BP 118/72; PULSE 83; RESP 16; TEMP 36.3; O2SAT 98
[2021-02-14] MEDS: FLUoxetine HCl Oral Solution 20 MG/5 ML SOLUTION 10 MG PO (09:15)
[2021-02-14] MEDS: Folic Acid 1 MG TABLET PO (09:16)
[2021-02-14] MEDS: Thiamine HCL 100 MG TABLET 200 MG PO (09:16)
[2021-02-14] MEDS: LORazepam 1 MG TABLET PO ×3 (09:17→20:38)
[2021-02-14] MEDS: Multivitamin TABLET 1 TAB PO (09:18)
[2021-02-14] MEDS: Gabapentin 300 MG CAPSULE PO ×3 (09:18→20:38)
[2021-02-14] MEDS: Nicotine 21 MG PATCH.TD24 TRANSDERMA (09:24)
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
[2021-02-14] MEDS: Carbamide Peroxide 6.5% Otic 15 ML DRPBTL 5 DROP EAR-BOTH ×2 (16:07→20:39)
[2021-02-14 16:56] VITALS: BP 101/70; PULSE 85; TEMP 36.3
[2021-02-14] MEDS: traZODone HCL 50 MG TABLET PO (20:38)
[2021-02-15 08:30] VITALS: PULSE 68; RESP 18; TEMP 36.6; O2SAT 95
[2021-02-15] MEDS: Multivitamin TABLET 1 TAB PO (08:43)
[2021-02-15] MEDS: Thiamine HCL 100 MG TABLET 200 MG PO (08:43)
[2021-02-15] MEDS: Gabapentin 300 MG CAPSULE PO ×3 (08:43→19:27)
[2021-02-15] MEDS: LORazepam 1 MG TABLET PO ×3 (08:43→19:27)
[2021-02-15] MEDS: Folic Acid 1 MG TABLET PO (08:43)
[2021-02-15] MEDS: FLUoxetine HCl Oral Solution 20 MG/5 ML SOLUTION 10 MG PO (08:45)
[2021-02-15] MEDS: Ibuprofen 600 MG TABLET PO (08:47)
[2021-02-15] MEDS: Carbamide Peroxide 6.5% Otic 15 ML DRPBTL 5 DROP EAR-BOTH (08:51)
[2021-02-15] MEDS: Nicotine 21 MG PATCH.TD24 TRANSDERMA (09:03)
[2021-02-15 17:20] VITALS: BP 119/75; PULSE 86; RESP 16; TEMP 36.7; O2SAT 96
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
[2021-02-15] MEDS: traZODone HCL 50 MG TABLET PO (22:37)
[2021-02-16 06:00] VITALS: BP 117/76; PULSE 77; RESP 18; TEMP 36.5; O2SAT 96
[2021-02-16] MEDS: Nicotine 21 MG PATCH.TD24 TRANSDERMA (09:03)
[2021-02-16] MEDS: Thiamine HCL 100 MG TABLET 200 MG PO (09:04)
[2021-02-16] MEDS: Ibuprofen 600 MG TABLET PO ×2 (09:04→16:28)
[2021-02-16] MEDS: LORazepam 1 MG TABLET PO ×4 (09:04→21:40)
[2021-02-16] MEDS: Gabapentin 300 MG CAPSULE PO ×3 (09:05→21:40)
[2021-02-16] MEDS: Folic Acid 1 MG TABLET PO (09:05)
[2021-02-16] MEDS: Multivitamin TABLET 1 TAB PO (09:05)
[2021-02-16] MEDS: FLUoxetine HCl Oral Solution 20 MG/5 ML SOLUTION 10 MG PO (09:06)
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
[2021-02-16 14:02] VITALS: BP 97/60; PULSE 88; RESP 18; TEMP 36.6; O2SAT 97
[2021-02-16 19:05] VITALS: BP 108/72; PULSE 88; RESP 18; TEMP 36.8; O2SAT 95
[2021-02-16] MEDS: traZODone HCL 50 MG TABLET PO (21:39)
[2021-02-17] MEDS: FLUoxetine HCl Oral Solution 20 MG/5 ML SOLUTION 10 MG PO (08:41)
[2021-02-17] MEDS: Folic Acid 1 MG TABLET PO (08:41)
[2021-02-17] MEDS: Gabapentin 300 MG CAPSULE PO ×3 (08:41→20:26)
[2021-02-17] MEDS: LORazepam 1 MG TABLET PO ×2 (08:41→14:16)
[2021-02-17] MEDS: Multivitamin TABLET 1 TAB PO (08:41)
[2021-02-17] MEDS: Thiamine HCL 100 MG TABLET 200 MG PO (08:41)
[2021-02-17] MEDS: Nicotine 21 MG PATCH.TD24 TRANSDERMA (09:06)
[2021-02-17 12:36] LABS: Vitamin B1 88 nmol/L (8-30)
[2021-02-17 13:08] VITALS: BP 124/73; PULSE 80
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
[2021-02-17 16:35] VITALS: BP 125/72; PULSE 84; TEMP 36.6
[2021-02-17] MEDS: Ibuprofen 600 MG TABLET PO (19:20)
[2021-02-18] MEDS: traZODone HCL 50 MG TABLET PO ×2 (03:56→20:05)
[2021-02-18 06:00] VITALS: BP 131/85; PULSE 82; RESP 16; TEMP 36.1; O2SAT 98
[2021-02-18] MEDS: Gabapentin 300 MG CAPSULE PO ×3 (09:22→20:01)
[2021-02-18] MEDS: Folic Acid 1 MG TABLET PO (09:22)
[2021-02-18] MEDS: Thiamine HCL 100 MG TABLET 200 MG PO (09:22)
[2021-02-18] MEDS: FLUoxetine HCl Oral Solution 20 MG/5 ML SOLUTION 10 MG PO (09:23)
[2021-02-18] MEDS: Multivitamin TABLET 1 TAB PO (09:23)
[2021-02-18] MEDS: Nicotine 21 MG PATCH.TD24 TRANSDERMA (09:23)
[2021-02-18] MEDS: Ibuprofen 600 MG TABLET PO (11:16)
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
[2021-02-18 18:00] VITALS: BP 119/67; PULSE 84; RESP 16; TEMP 36.3; O2SAT 95
[2021-02-19 06:00] VITALS: BP 108/62; PULSE 71; RESP 16; TEMP 36.2; O2SAT 96
[2021-02-19 09:03] VITALS: BP 138/91; PULSE 82; RESP 18; TEMP 36.5; O2SAT 97
[2021-02-19] MEDS: FLUoxetine HCl Oral Solution 20 MG/5 ML SOLUTION 10 MG PO (09:04)
[2021-02-19] MEDS: Gabapentin 300 MG CAPSULE PO ×3 (09:04→20:24)
[2021-02-19] MEDS: Thiamine HCL 100 MG TABLET 200 MG PO (09:05)
[2021-02-19] MEDS: Nicotine 21 MG PATCH.TD24 TRANSDERMA (09:05)
[2021-02-19] MEDS: Multivitamin TABLET 1 TAB PO (09:05)
[2021-02-19] MEDS: Folic Acid 1 MG TABLET PO (09:05)
[2021-02-19] MEDS: Carbamide Peroxide 6.5% Otic 15 ML DRPBTL 5 DROP EAR-BOTH ×2 (13:55→20:24)
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
[2021-02-19] MEDS: FLUoxetine HCl 10 MG CAPSULE PO (16:50)
[2021-02-19 17:10] VITALS: BP 119/74; PULSE 83; RESP 18; TEMP 36.5; O2SAT 97
[2021-02-19] MEDS: traZODone HCL 50 MG TABLET PO (20:24)
[2021-02-19] MEDS: Ibuprofen 600 MG TABLET PO (20:24)
[2021-02-20 06:00] VITALS: BP 143/81; PULSE 72; RESP 16; TEMP 35.8; O2SAT 99
[2021-02-20] MEDS: FLUoxetine HCl Oral Solution 20 MG/5 ML SOLUTION PO (08:02)
[2021-02-20] MEDS: Thiamine HCL 100 MG TABLET 200 MG PO (08:02)
[2021-02-20] MEDS: Gabapentin 300 MG CAPSULE PO ×2 (08:03→14:08)
[2021-02-20] MEDS: Folic Acid 1 MG TABLET PO (08:03)
[2021-02-20] MEDS: Multivitamin TABLET 1 TAB PO (08:03)
[2021-02-20] MEDS: Nicotine 21 MG PATCH.TD24 TRANSDERMA (08:03)
[2021-02-20] MEDS: Carbamide Peroxide 6.5% Otic 15 ML DRPBTL 5 DROP EAR-BOTH (08:03)
[2021-02-20] MEDS: Ibuprofen 600 MG TABLET PO (14:08)
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
[2021-02-20] MEDS: Naltrexone HCl 50 MG TABLET 25 MG PO (18:57)
[2021-02-20] MEDS: traZODone HCL 50 MG TABLET PO (21:04)
[2021-02-21 08:00] VITALS: BP 126/90; PULSE 87; RESP 18; TEMP 36.6; O2SAT 97
[2021-02-21] MEDS: Nicotine 21 MG PATCH.TD24 TRANSDERMA (08:24)
[2021-02-21] MEDS: Gabapentin 100 MG CAPSULE PO (08:25)
[2021-02-21] MEDS: Thiamine HCL 100 MG TABLET 200 MG PO (08:25)
[2021-02-21] MEDS: FLUoxetine HCl 20 MG CAPSULE PO (08:26)
[2021-02-21] MEDS: Folic Acid 1 MG TABLET PO (08:26)
[2021-02-21] MEDS: Multivitamin TABLET 1 TAB PO (08:28)
[2021-02-21 12:18] VITALS: BMI 22.8
[2021-02-21] MEDS: Ibuprofen 600 MG TABLET PO (14:46)
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
[2021-02-21 17:03] VITALS: BP 107/56; PULSE 65; RESP 16; TEMP 36.4; O2SAT 98
[2021-02-21 17:19] LABS: Alanine Aminotransferase 61 U/L (0-31); Albumin Level 4.3 g/dL (3.5-5.0); Alkaline Phosphatase 71 U/L (39-117); Aspartate Amino Transferase 36 U/L (5-31); Bilirubin Direct < 0.2 mg/dL (0.0-0.5); Bilirubin Total 0.2 mg/dL (0.0-1.0); Total Protein 6.8 g/dL (6.5-8.0)
[2021-02-21] MEDS: traZODone HCL 50 MG TABLET PO (21:27)
[2021-02-22 06:00] VITALS: BP 189/100; PULSE 82; TEMP 36.8; O2SAT 95
[2021-02-22] MEDS: Gabapentin 100 MG CAPSULE PO (08:28)
[2021-02-22] MEDS: Folic Acid 1 MG TABLET PO (08:28)
[2021-02-22] MEDS: FLUoxetine HCl 20 MG CAPSULE 40 MG PO (08:28)
[2021-02-22] MEDS: Thiamine HCL 100 MG TABLET 200 MG PO (08:28)
[2021-02-22] MEDS: Multivitamin TABLET 1 TAB PO (08:28)
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
== END 2021-02-22 11:20 | disposition home or self-care (01) | DRG 885 ==
LOC: HO.ED 02-12 08:26 → HO.PM5 02-12 14:20
PROVIDERS: Physician Assistant; Admitting Provider Psychiatry & Neurology Psychiatry; Emergency Provider Emergency Medicine Emergency Medical Services; Visit Provider Psychiatry & Neurology Psychiatry
DX: F33.2 Major depressive disorder, recurrent severe without psychotic features (principal); R45.851 Suicidal ideations; F14.20 Cocaine dependence, uncomplicated; F10.239 Alcohol dependence with withdrawal, unspecified; Z20.822 Contact with and (suspected) exposure to COVID-19; Z91.5 Personal history of self-harm; F41.9 Anxiety disorder, unspecified; Z79.899 Other long term (current) drug therapy
CPT/HCPCS: 36415; 80053; 80076; 80143; 80179; 80307; 81001; 82077; 82746; 83690; 83735; 84425; 84484; 85025; 87635; 93005; 96374; 99285